=== PATIENT | female | born 2000 ===

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

== ENCOUNTER 2022-01-16 11:53 | Inpatient (IN) | payer OTHER ==
[2022-01-16 12:31] LABS: BASOPHILS ABSOLUTE AUTO 0.02 K/mm3 (0.00-0.23); BASOPHILS PERCENT AUTO 0 % (0-2); EOSINOPHILS ABSOLUTE AUTO 0.02 K/mm3 (0.00-0.68); EOSINOPHILS PERCENT AUTO 0 % (0-6); Hematocrit 37.2 % (33.0-51.0); Hemoglobin 11.7 g/dL (11.5-16.0); IMMATURE GRAN PERCENT AUTO 1 % (0-1); LYMPHOCYTES ABSOLUTE AUTO 1.29 K/mm3 (0.84-5.20); LYMPHOCYTES PERCENT AUTO 10 % (21-46); MONOCYTES ABSOLUTE AUTO 0.79 K/mm3 (0.16-1.47); MONOCYTES PERCENT AUTO 6 % (4-13); Mean Corpuscular HGB 26.5 pg (26.0-34.0); Mean Corpuscular HGB Conc 31.5 g/dL (31.5-36.5); Mean Corpuscular Volume 84 fL (80-100); Mean Platelet Volume 11.7 fL (9.1-12.4); NEUTROPHILS ABSOLUTE AUTO 11.15 K/mm3 (1.96-9.15); NEUTROPHILS PERCENT AUTO 84 % (41-73); Platelet Count 221 K/mm3 (150-400); RDW Coefficient Variation 14.4 % (11.7-14.2); RDW Standard Deviation 43.9 fL (35.1-46.3); Red Blood Cell Count 4.42 M/mm3 (3.80-5.20); White Blood Cell Count 13.37 K/mm3 (4.00-11.30)
[2022-01-16] MEDS ORDERED: FERSU300 PO (13:28)
[2022-01-16] MEDS ORDERED: PRENATAL TABLE1 EAC2 (13:29)
--- NOTE | 2022-01-16 17:09 | NUR ---
1500: UP TO BRP AND SHOWER. VOIDED. TIMBO WELL.
--- NOTE | 2022-01-17 10:13 | NUR ---
PT AMBULATED TO RESTROOM FOR SHOWER. BREAKFAST TRAY TAKEN FROM ROOM. WATER REFILLED.
[2022-01-17] MEDS ORDERED: IBUP800 PO (12:53)
--- NOTE | 2022-01-17 14:20 | NUR ---
DISCHARGE DISCHARGE HOME STABLE. VERBALIZE UNDERSTANDING OF DC INSTRUCTIONS AND FOLLOW UP APPOINTMENTS. NO QUESTIONS OR CONCERNS. CARING FOR SELF AND BABY INDEPENDANTLY. LOCHIA SCANT. VSS.
== END 2022-01-17 14:27 | disposition home or self-care (01) | DRG 807 ==
LOC: OBS 11:53 → BC 11:53 → OBS 12:11 → BC 12:14
PROVIDERS: ADMIT Advanced Practice Midwife
PROC: 10E0XZZ Delivery of Products of Conception, External Approach (ICD-10-PCS; principal; 2022-01-16)
PROC: 0HQ9XZZ Repair Perineum Skin, External Approach (ICD-10-PCS; 2022-01-16)
DX: O77.0 Labor and delivery complicated by meconium in amniotic fluid (principal); Z37.0 Single live birth; O70.0 First degree perineal laceration during delivery; Z3A.39 39 weeks gestation of pregnancy; Z67.40 Type O blood, Rh positive
CPT/HCPCS: 85025; 86850; 86900; 86901; A9270; J1885; J2590

== ENCOUNTER → 2024-05-23 | Outpatient (CLI) | payer OTHER ==
[~2024-05-23] MED LIST: FERSU300 PO; IBUP800 PO; PRENATAL TABLE1 EAC2
== END ==
LOC: LAB 16:10 → LAB SHORT 16:10
DX: R82.998 Other abnormal findings in urine (principal)
CPT/HCPCS: 87086